=== PATIENT | female | born 1960 | race Two or more races ===

== ENCOUNTER 2020-07-10 14:22 | Emergency (ER) | payer OTHER ==
[~2020-07-10] VITALS: Ht 172.7 cm; Wt 104.3 kg
== END 2020-07-10 17:53 | disposition home or self-care (01) ==
LOC: ER 14:22
DX: S80.02XA Contusion of left knee, initial encounter (principal); W18.09XA Striking against other object with subsequent fall, initial encounter; Y93.89 Activity, other specified; Y92.488 Other paved roadways as the place of occurrence of the external cause; Y99.8 Other external cause status